=== PATIENT | female | born 1955 | race Hispanic/Latino ===

== ENCOUNTER 2018-09-22 05:54 | Day surgery (SDC) | payer OTHER ==
[2018-09-20 11:54] VITALS: BP 136/72
[2018-09-20 12:04] LABS: BASOPHILS % (AUTO) 0.9 % (0.0-5.0); EOSINOPHILS % (AUTO) 3.5 % (0.0-8.0); HEMATOCRIT 40.6 % (36-48); LYMPHOCYTES % (AUTO) 38.8 % (21.0-51.0); MEAN CORPUSCULAR HEMOGLOBIN 28.2 pg (27.0-33.0); MEAN CORPUSCULAR HGB CONC 32.6 g/dL (32.0-36.0); MEAN CORPUSCULAR VOLUME 86.6 fL (79-99); MONOCYTES % (AUTO) 8.1 % (3.0-13.0); NEUTROPHILS % (AUTO) 48.7 % (40.0-77.0); NUCLEATED RED BLOOD CELLS 0.1 % (0.0-0.19); PLATELET COUNT (AUTO) 171 K/uL (130-400); RED BLOOD CELL COUNT(AUTO) 4.69 MIL/uL (4.00-5.50); RED CELL DISTRIBUTION WIDTH 14.2 % (11.0-15.5); WHITE BLOOD COUNT (AUTO) 6.5 K/uL (4.8-10.8)
[2018-09-20 12:06] LABS: APPEARANCE,URINE Clear (CLEAR); BILIRUBIN,URINE Negative (NEGATIVE); COLOR,URINE Dark Yellow (YELLOW); GLUCOSE, URINE (UA) >=1000 mg/dL (NEGATIVE); KETONES,URINE Trace mg/dL (NEGATIVE); LEUKOCYTE ESTERASE ,URINE Negative (NEGATIVE); NITRATE,URINE Positive (NEGATIVE); OCCULT BLOOD,URINE Negative (NEGATIVE); PROTEIN,URINE Negative (NEGATIVE)
[2018-09-20 12:10] LABS: CREATININE 0.7 mg/dL (0.5-1.5)
[2018-09-20 12:18] LABS: BACTERIA,URINE Many /HPF (None Seen); RBC,URINE None Seen /HPF (0-1); WBC,URINE 0-1 /HPF (0-1)
[2018-09-20 12:22] LABS: INR 0.99 (0.85-1.15); PARTIAL THROMBOPLASTIN TIME 25.9 SEC (26.3-35.5); PROTHROMBIN TIME 10.4 SEC (9.6-11.6)
--- NOTE | 2018-09-21 11:24 | NUR ---
NOTE REPORTED ABNORMAL UA TO DAJUAN NAVARRO , NO FURTHER ORDERS GIVEN
[~2018-09-22] VITALS: Ht 160 cm; Wt 81.1 kg
[2018-09-22] VITALS (11 sets, daily range): BP systolic 125–159; BP diastolic 58–77
[~2018-09-22 05:54] MED LIST: ALEN35TA31 PO; ASPI-555 PO; ATOR20TA65 PO; CALC-1153 PO; CHOL200016 PO; CILO50TA PO; GABA-531 PO; LUTE6CAP2 PO; METF-446 PO; OMEP20CA10 PO; SITA100T12 PO; VITA1CAP20 PO; VITA400C19 PO
--- NOTE | 2018-09-22 06:48 | NUR ---
hyperglycemia reported elevated blood sugar 331 to Declan Nagy PAC, orders to use insulin Humulin R sliding scale
[2018-09-22] MEDS ORDERED: SODIUM BICARB 50MEQ 50ML VIAL ONE (07:08)
[2018-09-22] MEDS ORDERED: HEPARIN SODIUM 1000UNIT/ML 10ML VIAL ONE (07:08)
[2018-09-22] MEDS ORDERED: NITROGLYCERIN 5 MG/ML 10 ML VIAL IV ONE (07:09)
[2018-09-22] MEDS ORDERED: IODIXANOL 320 MG/ML 100 ML VIAL ONE (07:09)
[2018-09-22] MEDS ORDERED: LIDOCAINE HCL 2% 20ML ONE (07:09)
[2018-09-22] MEDS ORDERED: MEPERIDINE-PF 25 MG/ML SYG ONE ×2 (07:15→07:36)
[2018-09-22] MEDS ORDERED: MIDAZOLAM HCL 1 MG/ML 2ML VIAL ONE ×2 (07:15→07:36)
[2018-09-22] MEDS ORDERED: INSULIN HUMULIN R 100 UNIT/ML 3ML SQ SCH ×2 (07:30→11:30)
[2018-09-22] MEDS ORDERED: SODIUM CHLORIDE 0.9% 1000ML 1,000 ML IV SCH ×2 (08:00→08:50)
[2018-09-22] MEDS ORDERED: CLOPIDOGREL BISULFATE 300 MG TAB ONE (08:43)
[2018-09-22] MEDS ORDERED: DEXTROSE 50%-WATER 50 ML DISP.SYRIN IV PRN (09:00)
[2018-09-22] MEDS ORDERED: GLUCAGON 1MG KIT 1 MG ML IM PRN (09:00)
[2018-09-22] MEDS ORDERED: ACETAMINOPHEN 325 MG TAB PO SCH (09:45)
== END 2018-09-22 13:43 | disposition home or self-care (01) ==
LOC: DAH 05:54
PROVIDERS: ATTEND Internal Medicine Cardiovascular Disease
DX: I70.212 Atherosclerosis of native arteries of extremities with intermittent claudication, left leg (principal); I70.0 Atherosclerosis of aorta; E11.51 Type 2 diabetes mellitus with diabetic peripheral angiopathy without gangrene; Z95.5 Presence of coronary angioplasty implant and graft; I10 Essential (primary) hypertension; Z82.49 Family history of ischemic heart disease and other diseases of the circulatory system; E78.5 Hyperlipidemia, unspecified; Z79.01 Long term (current) use of anticoagulants; Z79.84 Long term (current) use of oral hypoglycemic drugs; Z79.899 Other long term (current) drug therapy; Z98.890 Other specified postprocedural states; Z68.30 Body mass index [BMI] 30.0-30.9, adult
CPT/HCPCS: 36415; 37226; 71045; 75625; 75716; 80048; 81001; 82948 ×3; 85025; 85347; 85610; 85730; 93005; A4606; C1725; C1760; C1769; C1874 ×2; C1893; C1894; J1644 ×2; J1815; J2175 ×2; J2250 ×2; J3490 ×3; Q9967; 99156; 99157

== ENCOUNTER 2019-04-22 04:49 | Inpatient (IN) | payer OTHER ==
[~2019-04-22] VITALS: Ht 162.6 cm; Wt 80.7 kg
[~2019-04-22 04:49] MED LIST changes: -OMEP20CA10 PO
[2019-04-22] MEDS ORDERED: SODIUM CHLORIDE 0.9% 500ML 500 ML IV ONE (05:38)
[2019-04-22] MEDS ORDERED: LIDOCAINE 5% TOPICAL PATCH TP ONE (05:40)
[2019-04-22 05:43] LABS: BASOPHILS % (AUTO) 0.7 % (0.0-5.0); LYMPHOCYTES % (AUTO) 32.5 % (21.0-51.0); MEAN CORPUSCULAR HEMOGLOBIN 30.9 pg (27.0-33.0); MEAN CORPUSCULAR HGB CONC 34.4 g/dL (32.0-36.0); MEAN CORPUSCULAR VOLUME 89.7 fL (79-99); MONOCYTES % (AUTO) 8.5 % (3.0-13.0); NEUTROPHILS % (AUTO) 54.3 % (40.0-77.0); PLATELET COUNT (AUTO) 136 K/uL (130-400); RED BLOOD CELL COUNT(AUTO) 4.13 MIL/uL (4.00-5.50); RED CELL DISTRIBUTION WIDTH 14.4 % (11.0-15.5); WHITE BLOOD COUNT (AUTO) 6.5 K/uL (4.8-10.8)
[2019-04-22 05:52] LABS: CREATININE 0.7 mg/dL (0.5-1.5); POTASSIUM 4.3 mmol/L (3.5-5.1)
[2019-04-22 05:56] LABS: ALBUMIN 3.6 g/dL (3.5-5.0); BILIRUBIN,TOTAL 0.3 mg/dL (0.2-1.0); MAGNESIUM 1.4 mg/dL (1.80-2.40); TOTAL PROTEIN, SERUM 7.2 g/dL (6.0-8.3)
[2019-04-22 06:09] LABS: INR 1.02 (0.85-1.15); PARTIAL THROMBOPLASTIN TIME 24.8 SEC (26.3-35.5); PROTHROMBIN TIME 10.7 SEC (9.6-11.6)
[2019-04-22 10:06] LABS: APPEARANCE,URINE Clear (CLEAR); BILIRUBIN,URINE Negative (NEGATIVE); COLOR,URINE Yellow (YELLOW); GLUCOSE, URINE (UA) >=1000 mg/dL (NEGATIVE); KETONES,URINE Negative (NEGATIVE); LEUKOCYTE ESTERASE ,URINE Negative (NEGATIVE); NITRATE,URINE Negative (NEGATIVE); OCCULT BLOOD,URINE Negative (NEGATIVE); PROTEIN,URINE Negative (NEGATIVE)
[2019-04-22 10:16] LABS: BACTERIA,URINE Many /HPF (None Seen); RBC,URINE None Seen /HPF (0-1)
[2019-04-22 10:17] LABS: WBC,URINE 0-1 /HPF (0-1)
[2019-04-22] MEDS ORDERED: ACETAMINOPHEN 325 MG TAB PO PRN (10:45)
[2019-04-22] MEDS ORDERED: ONDANSETRON HCL 4 MG/2 ML VIAL IV PRN (10:45)
[2019-04-22] MEDS ORDERED: NITROGLYCERIN 0.4 MG SL TAB SL PRN (10:45)
[2019-04-22] MEDS ORDERED: HYDRALAZINE HCL 20 MG/ML VIAL IV PRN (11:15)
[2019-04-22] MEDS ORDERED: MORPHINE SULFATE 2 MG/ML 1ML SYG IVP PRN (11:15)
[2019-04-22] MEDS ORDERED: NITROGLYCERIN 1GM/1 INCH PACKET TD ONE (14:52)
[2019-04-22 17:35] VITALS: BP 159/87
[2019-04-22] MEDS ORDERED: PANT40TA25 PO (18:18)
[2019-04-22] MEDS ORDERED: MELO-106 PO (18:18)
[2019-04-22] MEDS ORDERED: CARV6.25 PO (18:18)
[2019-04-22] MEDS ORDERED: CLOP75TA32 PO (18:18)
[2019-04-22] MEDS ORDERED: DULA1.5P SQ (18:21)
[2019-04-22] MEDS ORDERED: HUM100IN SQ (18:21)
--- NOTE | 2019-04-22 20:15 | NUR ---
ASSESSMENT PT AAOX4, PLEASANT, COOPERATIVE, FOLLOWS ALL COMMANDS, PERRLA. IV TO RAC 20G PATENT AND INTACT, NS AT 100ML/H STARTED. ROOM AIR. PT VOIDS WITHOUT DIFFICULTY. CALLBELL REVIEWED AND WITHIN REACH. WHITE BOARD UP-DATED. ASSESSMENT COMPLETED, SEE FLOW SHEET.
[2019-04-22] MEDS: NITROGLYCERIN 1GM/1 INCH PACKET TD SCH (20:43)
[2019-04-22] MEDS: HYDROCODONE/ACETAMINOPHEN 5/325 MG TAB PO PRN (20:44)
[2019-04-22] MEDS: FAMOTIDINE 20MG TAB 20 MG TAB PO SCH (20:44)
[2019-04-22] MEDS: SODIUM CHLORIDE 0.9% 1000ML 1,000 ML IV SCH (20:45)
[2019-04-22] MEDS: INSULIN HUMULIN R 100 UNIT/ML 3ML SQ SCH (22:29)
--- NOTE | 2019-04-22 23:59 | NUR ---
NPO PT NPO.
[2019-04-23] VITALS (13 sets, daily range): BP systolic 99–206; BP diastolic 42–88
[2019-04-23] MEDS: NITROGLYCERIN 1GM/1 INCH PACKET TD SCH ×3 (03:37→15:00)
[2019-04-23 05:41] LABS: HEMATOCRIT 37.2 % (36-48); MEAN CORPUSCULAR HEMOGLOBIN 30.9 pg (27.0-33.0); MEAN CORPUSCULAR VOLUME 90.7 fL (79-99); NUCLEATED RED BLOOD CELLS 0.1 % (0.0-0.19); PLATELET COUNT (AUTO) 134 K/uL (130-400); RED CELL DISTRIBUTION WIDTH 14.1 % (11.0-15.5); WHITE BLOOD COUNT (AUTO) 6.4 K/uL (4.8-10.8)
[2019-04-23 06:00] LABS: INR 1.01 (0.85-1.15); PARTIAL THROMBOPLASTIN TIME 24.8 SEC (26.3-35.5); PROTHROMBIN TIME 10.6 SEC (9.6-11.6)
[2019-04-23 06:11] LABS: CREATININE 0.6 mg/dL (0.5-1.5)
[2019-04-23] MEDS: INSULIN HUMULIN R 100 UNIT/ML 3ML SQ SCH ×4 (06:49→21:00)
[2019-04-23] MEDS: SODIUM CHLORIDE 0.9% 1000ML 1,000 ML IV SCH ×2 (07:02→11:12)
--- NOTE | 2019-04-23 07:45 | NUR ---
DR. INGRAM AT BEDSIDE TO SEE PT. PLAN OF CARE DISCUSSED. NEW ORDERS RECEIVED AND NOTED.
[2019-04-23] MEDS: ENOXAPARIN SODIUM 40 MG/0.4 ML SYRINGE SQ SCH (08:03)
[2019-04-23] MEDS ORDERED: ASPIRIN 81MG TAB.CHEW ONE (08:06)
[2019-04-23] MEDS: FAMOTIDINE 20MG TAB 20 MG TAB PO SCH ×2 (08:08→21:30)
[2019-04-23] MEDS: ASPIRIN 81 MG EC TAB PO SCH (09:00)
[2019-04-23] MEDS: CLOPIDOGREL BISULFATE 75 MG TAB PO SCH (09:59)
--- NOTE | 2019-04-23 11:00 | NUR ---
PT TAKEN TO HATCHERY SUPERVISOR BY HATCHERY SUPERVISOR NURSE.
[2019-04-23] MEDS ORDERED: NITROGLYCERIN 5 MG/ML 10 ML VIAL IV ONE ×2 (11:04→12:44)
[2019-04-23] MEDS ORDERED: HEPARIN SODIUM 1000UNIT/ML 10ML VIAL ONE ×2 (11:04→12:44)
[2019-04-23] MEDS ORDERED: LIDOCAINE HCL 2% 20ML ONE ×2 (11:05→12:44)
[2019-04-23] MEDS ORDERED: IODIXANOL 320 MG/ML 100 ML VIAL ONE ×2 (11:05→12:44)
--- NOTE | 2019-04-23 11:22 | NUR ---
NADER PLAN PATIENT DOWN FOR PROCEDURE. ROLANDO WILL CONTINUE TO FOLLOW. Addendum: 04/23/19 at 1125 by LETI ALLEN RN CM Amended: Links added.
[2019-04-23] MEDS ORDERED: LABETALOL HCL 5 MG/ML 20ML VIAL IV ONE (14:04)
[2019-04-23] MEDS ORDERED: SODIUM CHLORIDE 0.9% 1000ML 1,000 ML IV SCH (14:16)
[2019-04-23 15:47] LABS: CREATINE KINASE, TOTAL 49 U/L (21-232); MYOGLOBIN 34 ng/mL (10-92); TROPONIN I < 0.04 ng/mL (0.00-0.06)
--- NOTE | 2019-04-23 20:00 | NUR ---
PT STATES THAT SHE WAS TOLD THAT DR. HAGAN WOULD BE SEEING HER TONIGHT AND PROBABLY HAVE "SOME" SURGERY IN THE MORNING. PT WAS ADVISED THAT DR. HAGAN HAD BEEN BY IN THE MORNING AND NOT SURE THAT HE WOULD BE BACK, SHE STATED THAT SHE WOULD WAIT AND SEE.
[2019-04-23] MEDS: ATORVASTATIN CALCIUM 20 MG TABLET PO SCH (21:30)
[2019-04-23] MEDS: CARVEDILOL 6.25 MG TABLET PO SCH (21:30)
[2019-04-23] MEDS: HYDROCODONE/ACETAMINOPHEN 5/325 MG TAB PO PRN (21:32)
[2019-04-24] VITALS (7 sets, daily range): BP systolic 134–155; BP diastolic 61–84
[2019-04-24] MEDS: NITROGLYCERIN 1GM/1 INCH PACKET TD SCH ×3 (03:15→20:12)
[2019-04-24 04:06] LABS: HEMATOCRIT 36.2 % (36-48); MEAN CORPUSCULAR HEMOGLOBIN 30.8 pg (27.0-33.0); MEAN CORPUSCULAR HGB CONC 34.2 g/dL (32.0-36.0); MEAN CORPUSCULAR VOLUME 89.8 fL (79-99); PLATELET COUNT (AUTO) 135 K/uL (130-400); RED BLOOD CELL COUNT(AUTO) 4.03 MIL/uL (4.00-5.50); RED CELL DISTRIBUTION WIDTH 14.1 % (11.0-15.5); WHITE BLOOD COUNT (AUTO) 6.6 K/uL (4.8-10.8)
[2019-04-24 04:21] LABS: CREATININE 0.6 mg/dL (0.5-1.5)
[2019-04-24] MEDS: INSULIN HUMULIN R 100 UNIT/ML 3ML SQ SCH ×4 (07:30→21:00)
[2019-04-24] MEDS: ASPIRIN 81 MG EC TAB PO SCH (09:00)
[2019-04-24] MEDS: ENOXAPARIN SODIUM 40 MG/0.4 ML SYRINGE SQ SCH (09:00)
[2019-04-24] MEDS: CLOPIDOGREL BISULFATE 75 MG TAB PO SCH (09:00)
--- NOTE | 2019-04-24 09:02 | NUR ---
HELD DOSE OF PLAVIX, ASA, AND LOVENOX, SCHEDULED FOR FEM POP TODAY
[2019-04-24] MEDS: FAMOTIDINE 20MG TAB 20 MG TAB PO SCH ×2 (09:03→20:38)
[2019-04-24] MEDS: CARVEDILOL 6.25 MG TABLET PO SCH ×2 (09:04→20:39)
[2019-04-24] MEDS: SODIUM CHLORIDE 0.9% 1000ML 1,000 ML IV SCH ×3 (09:41→18:30)
[2019-04-24 10:14] LABS: INR 1.02 (0.85-1.15); PROTHROMBIN TIME 10.7 SEC (9.6-11.6)
--- NOTE | 2019-04-24 11:35 | NUR ---
[facility] consult Patient assessed as ordered. No open wound identified. Right forearm site where wound was is now epithelialized. No [facility] recommendations required at this time.
[2019-04-24] MEDS ORDERED: CEFAZOLIN SODIUM 1 GM VIAL IVP PRN (15:00)
--- NOTE | 2019-04-24 16:48 | NUR ---
DC PLAN VISITED WITH PATIENT. PATIENT LIVES WITH SPOUSE. INDEPENDENT ABLE TO PERFORM ADL'S. PATIENT HAS NO SERVICES OR DME'S. FEELS SAFE TO RETURN HOME. Addendum: 04/24/19 at 1651 by LETI ALLEN RN CM Amended: Links added.
--- NOTE | 2019-04-24 19:35 | NUR ---
ASSESSMENT AWAKE. RESTING IN BED. DENIES PAIN. ASSESSMENT COMPLETED SEE FLOW SHEET. Addendum: 04/24/19 at 2231 by MANOJ ADAMSON RN RN Amended: Links added.
[2019-04-24] MEDS: ATORVASTATIN CALCIUM 20 MG TABLET PO SCH (20:38)
[2019-04-24] MEDS: HYDROCODONE/ACETAMINOPHEN 5/325 MG TAB PO PRN (20:44)
[2019-04-25] VITALS (17 sets, daily range): BP systolic 95–181; BP diastolic 47–81
[2019-04-25] MEDS: SODIUM CHLORIDE 0.9% 1000ML 1,000 ML IV SCH ×2 (03:15→11:45)
[2019-04-25] MEDS: NITROGLYCERIN 1GM/1 INCH PACKET TD SCH ×3 (03:15→20:17)
[2019-04-25] MEDS: INSULIN HUMULIN R 100 UNIT/ML 3ML SQ SCH ×4 (03:39→22:10)
[2019-04-25] MEDS: ASPIRIN 81 MG EC TAB PO SCH (08:49)
[2019-04-25] MEDS: FAMOTIDINE 20MG TAB 20 MG TAB PO SCH ×2 (08:49→22:08)
[2019-04-25] MEDS: CARVEDILOL 6.25 MG TABLET PO SCH ×2 (08:49→22:08)
[2019-04-25] MEDS: CLOPIDOGREL BISULFATE 75 MG TAB PO SCH (08:50)
[2019-04-25] MEDS: ENOXAPARIN SODIUM 40 MG/0.4 ML SYRINGE SQ SCH (08:50)
--- NOTE | 2019-04-25 11:30 | NUR ---
patient taken to OR by OR staff; daughter at bedside
[2019-04-25] MEDS ORDERED: DEXAMETHASONE SOD PHOSPHATE 10MG/ML 1ML VIAL ONE (12:00)
[2019-04-25] MEDS ORDERED: ONDANSETRON HCL 4 MG/2 ML VIAL ONE (12:00)
[2019-04-25] MEDS ORDERED: LIDOCAINE PF 2% 5ML ABBOJECT ONE (12:00)
[2019-04-25] MEDS ORDERED: FENTANYL CITRATE PF 50 MCG/1 ML 2ML VIAL ONE ×2 (12:00→14:02)
[2019-04-25] MEDS ORDERED: MIDAZOLAM HCL 1 MG/ML 2ML VIAL ONE (12:01)
[2019-04-25] MEDS ORDERED: PROPOFOL 10 MG/ML 20ML VIAL IV ONE (12:01)
[2019-04-25] MEDS ORDERED: BACITRACIN 50,000 UNIT VIAL ONE (12:51)
[2019-04-25] MEDS ORDERED: MORPHINE SULFATE 2 MG/ML 1ML SYG IM PRN (13:30)
[2019-04-25] MEDS ORDERED: HEPARIN SODIUM 1000UNIT/ML 10ML VIAL ONE (13:40)
[2019-04-25] MEDS ORDERED: ACETAMINOPHEN 325 MG TAB PO PRN (13:45)
[2019-04-25] MEDS ORDERED: NEOSTIGMINE 5MG/5ML SYR IV ONE (14:31)
[2019-04-25] MEDS ORDERED: GLYCOPYRROLATE 1 MG/5 ML SYRINGE ONE (14:31)
--- NOTE | 2019-04-25 15:16 | NUR ---
RECEIVED FROM SURGERY DEPT . DROWSY. PATENT AIRWAY. STABLE. NO BLEEDING PEDAL PULSES TO LEFT FOOT WEAK/PALPABLE. DRESSING TO INNER RT THIGH CLEAN DRY AND INTACT
[2019-04-25 15:23] LABS: MEAN CORPUSCULAR HEMOGLOBIN 30.9 pg (27.0-33.0); MEAN CORPUSCULAR HGB CONC 33.6 g/dL (32.0-36.0); MEAN CORPUSCULAR VOLUME 91.9 fL (79-99); RED BLOOD CELL COUNT(AUTO) 3.92 MIL/uL (4.00-5.50)
[2019-04-25 15:24] LABS: PLATELET COUNT (AUTO) 130 K/uL (130-400); RED CELL DISTRIBUTION WIDTH 14.1 % (11.0-15.5)
[2019-04-25 15:29] LABS: CREATININE 0.6 mg/dL (0.5-1.5); POTASSIUM 3.7 mmol/L (3.5-5.1)
[2019-04-25] MEDS ORDERED: MORPHINE SULFATE 2 MG/ML 1ML SYG IV PRN ×2 (16:00→16:30)
[2019-04-25] MEDS ORDERED: MORPHINE SULFATE 2 MG/ML 1ML SYG ONE (16:03)
[2019-04-25] MEDS: TRAMADOL HCL 50 MG TABLET PO PRN (17:20)
--- NOTE | 2019-04-25 19:19 | NUR ---
HAND OFF REPORT GIVEN TO LAXMI BEVERLY
[2019-04-25] MEDS: CEFAZOLIN SODIUM 1 GM VIAL IVP SCH (22:07)
[2019-04-25] MEDS: ATORVASTATIN CALCIUM 20 MG TABLET PO SCH (22:07)
[2019-04-26] VITALS (14 sets, daily range): BP systolic 95–149; BP diastolic 46–82
[2019-04-26] MEDS: SODIUM CHLORIDE 0.9% 1000ML 1,000 ML IV SCH ×2 (00:30→08:50)
[2019-04-26] MEDS: TRAMADOL HCL 50 MG TABLET PO PRN ×4 (00:57→23:23)
[2019-04-26 03:51] LABS: BASOPHILS % (AUTO) 0.2 % (0.0-5.0); HEMATOCRIT 30.9 % (36-48); MEAN CORPUSCULAR HEMOGLOBIN 31.3 pg (27.0-33.0); MEAN CORPUSCULAR HGB CONC 35.1 g/dL (32.0-36.0); MEAN CORPUSCULAR VOLUME 89.1 fL (79-99); MONOCYTES % (AUTO) 6.2 % (3.0-13.0); NEUTROPHILS % (AUTO) 86.6 % (40.0-77.0); PLATELET COUNT (AUTO) 150 K/uL (130-400); RED BLOOD CELL COUNT(AUTO) 3.46 MIL/uL (4.00-5.50); WHITE BLOOD COUNT (AUTO) 8.4 K/uL (4.8-10.8)
[2019-04-26] MEDS: NITROGLYCERIN 1GM/1 INCH PACKET TD SCH ×2 (03:54→11:15)
[2019-04-26 04:02] LABS: ALBUMIN 3.1 g/dL (3.5-5.0); BILIRUBIN,TOTAL 0.6 mg/dL (0.2-1.0); CREATININE 0.7 mg/dL (0.5-1.5); TOTAL PROTEIN, SERUM 6.4 g/dL (6.0-8.3)
[2019-04-26] MEDS: CEFAZOLIN SODIUM 1 GM VIAL IVP SCH ×2 (05:27→12:06)
[2019-04-26] MEDS: INSULIN HUMULIN R 100 UNIT/ML 3ML SQ SCH ×4 (06:51→21:20)
--- NOTE | 2019-04-26 07:30 | NUR ---
PT OUT OF BED TO CHAIR. ENCOURAGED TO INCREASE ACTIVITY. PULSES TO LEFT FOOT PRESENT BY DOPPLER. DRESSINGS CLEAN DRY AND INTACT.
[2019-04-26] MEDS: CLOPIDOGREL BISULFATE 75 MG TAB PO SCH (08:47)
[2019-04-26] MEDS: FAMOTIDINE 20MG TAB 20 MG TAB PO SCH ×2 (08:47→21:11)
[2019-04-26] MEDS: CARVEDILOL 6.25 MG TABLET PO SCH ×2 (08:47→21:11)
[2019-04-26] MEDS: ENOXAPARIN SODIUM 40 MG/0.4 ML SYRINGE SQ SCH (08:48)
[2019-04-26] MEDS ORDERED: ASPIRIN 325MG EC TAB 325 MG TABLET.DR PO SCH (09:00)
--- NOTE | 2019-04-26 17:57 | NUR ---
TRANSFERRED TO ROOM 231. HAND OFF REPORT GIVEN TO DIMAS BEVERLY
[2019-04-26] MEDS: ATORVASTATIN CALCIUM 20 MG TABLET PO SCH (21:11)
[2019-04-27 04:27] VITALS: BP 127/62
[2019-04-27 04:34] LABS: BASOPHILS % (AUTO) 0.4 % (0.0-5.0); EOSINOPHILS % (AUTO) 1.1 % (0.0-8.0); HEMATOCRIT 26.9 % (36-48); LYMPHOCYTES % (AUTO) 26.3 % (21.0-51.0); MEAN CORPUSCULAR HEMOGLOBIN 31.8 pg (27.0-33.0); MEAN CORPUSCULAR HGB CONC 35.1 g/dL (32.0-36.0); MEAN CORPUSCULAR VOLUME 90.6 fL (79-99); MONOCYTES % (AUTO) 8.9 % (3.0-13.0); NEUTROPHILS % (AUTO) 63.3 % (40.0-77.0); PLATELET COUNT (AUTO) 117 K/uL (130-400); RED BLOOD CELL COUNT(AUTO) 2.97 MIL/uL (4.00-5.50); RED CELL DISTRIBUTION WIDTH 14.5 % (11.0-15.5); WHITE BLOOD COUNT (AUTO) 6.7 K/uL (4.8-10.8)
[2019-04-27 04:53] LABS: CREATININE 0.6 mg/dL (0.5-1.5); POTASSIUM 3.4 mmol/L (3.5-5.1)
[2019-04-27] MEDS: INSULIN HUMULIN R 100 UNIT/ML 3ML SQ SCH ×3 (06:48→17:20)
[2019-04-27] MEDS: TRAMADOL HCL 50 MG TABLET PO PRN ×2 (07:00→13:46)
[2019-04-27 07:47] VITALS: BP 125/74
[2019-04-27] MEDS ORDERED: FUROSEMIDE 20 MG TABLET PO SCH (09:30)
[2019-04-27] MEDS: CARVEDILOL 6.25 MG TABLET PO SCH (09:47)
[2019-04-27] MEDS: FAMOTIDINE 20MG TAB 20 MG TAB PO SCH (09:47)
[2019-04-27] MEDS: NITROGLYCERIN 1GM/1 INCH PACKET TD SCH (11:15)
[2019-04-27 11:48] VITALS: BP 102/59
--- NOTE | 2019-04-27 15:22 | NUR ---
Nutrition intervention: Nutrition screen for LOS. Pt admitted for elevated trop. Pt is s/p left fem-pop sx. Pt with diet advanced to [id number], heart healthy, NCS with 100% intake. Pt with PMH of uncontrolled DM. Reviewed heart healthy diet with pt, encouraged to make dietary lifestyle changes for the better of her health. Pt verbalized agreement. Recommendations: Continue current diet therapy. Monitor intake and tolerance. Consult RD as nutrition concerns arise. Addendum: 04/27/19 at [address] RD Amended: Links added.
[2019-04-27 15:35] VITALS: BP 123/64
[2019-04-28] MEDS ORDERED: ASPIRIN 81MG TAB.CHEW PO SCH (09:00)
== END 2019-04-27 18:50 | disposition home or self-care (01) | DRG 253 ==
LOC: EDH 04:49 → EDHIP 10:44 → 2DH 17:40 → 2BH 04-25 12:47 → 2AH 04-26 18:48
PROVIDERS: ADMIT Hospitalist; ATTEND Hospitalist
PROC: B4101ZZ Fluoroscopy of Abdominal Aorta using Low Osmolar Contrast (ICD-10-PCS; 2019-04-25)
PROC: B41G1ZZ Fluoroscopy of Left Lower Extremity Arteries using Low Osmolar Contrast (ICD-10-PCS; 2019-04-25)
PROC: B41F1ZZ Fluoroscopy of Right Lower Extremity Arteries using Low Osmolar Contrast (ICD-10-PCS; 2019-04-25)
PROC: 041L0JL Bypass Left Femoral Artery to Popliteal Artery with Synthetic Substitute, Open Approach (ICD-10-PCS; principal; 2019-04-25 12:05)
DX: T82.856A Stenosis of peripheral vascular stent, initial encounter (principal); D62 Acute posthemorrhagic anemia; E11.51 Type 2 diabetes mellitus with diabetic peripheral angiopathy without gangrene; I25.10 Atherosclerotic heart disease of native coronary artery without angina pectoris; E11.65 Type 2 diabetes mellitus with hyperglycemia; I70.202 Unspecified atherosclerosis of native arteries of extremities, left leg; E11.40 Type 2 diabetes mellitus with diabetic neuropathy, unspecified; M94.0 Chondrocostal junction syndrome [Tietze]; E03.9 Hypothyroidism, unspecified; E66.9 Obesity, unspecified; E78.5 Hyperlipidemia, unspecified; I10 Essential (primary) hypertension; Y83.8 Other surgical procedures as the cause of abnormal reaction of the patient, or of later complication, without mention of misadventure at the time of the procedure; Z80.9 Family history of malignant neoplasm, unspecified; Z68.30 Body mass index [BMI] 30.0-30.9, adult; Z95.5 Presence of coronary angioplasty implant and graft; Z95.820 Peripheral vascular angioplasty status with implants and grafts; Y92.89 Other specified places as the place of occurrence of the external cause
CPT/HCPCS: 36246; 36415; 75710; 75716; 80048; 80053; 80061; 81001; 82550; 82948; 83036; 83605; 83735; 83874; 84484; 85025; 85027; 85610; 85730; 86850; 86900; 86901; 86922; 93005; 93926; 93971; 97039; C1760; C1768; C1769; C1894; G0378; J0360; J0690; J1100; J1644; J1650; J1815; J2001; J2250; J2405; J2704; J2710; J3010; J3490; J7030; J7040; Q9967

== ENCOUNTER → 2021-01-08 | Outpatient (CLI) | payer OTHER ==
[~2021-01-08] MED LIST changes: -ALEN35TA31 PO; +ALEN35TA51 PO; -ASPI-555 PO; +ASPI-556 PO; -CALC-1153 PO; +CARV6.25 PO; -CHOL200016 PO; -CILO50TA PO; +DULA1.5P SQ; +HUM100IN SQ; +IOHEXOL 350 MG/ML 100ML INFUS..BTL IV ONE; +IOHEXOL-350 50ML VIAL IV ONE; +MELO-106 PO; +PANT40TA54 PO; +VITA-395 PO; -VITA400C19 PO
== END | disposition home or self-care (01) ==
LOC: RAH 08:32
PROVIDERS: ATTEND Internal Medicine Cardiovascular Disease
DX: I71.4 Abdominal aortic aneurysm, without rupture (principal); I70.0 Atherosclerosis of aorta
CPT/HCPCS: 75635; Q9967 ×2

== ENCOUNTER 2021-02-24 15:02 | Inpatient (IN) | payer OTHER ==
[~2021-02-24] VITALS: Ht 157.5 cm; Wt 88.2 kg
[~2021-02-24 15:02] MED LIST changes: -IOHEXOL 350 MG/ML 100ML INFUS..BTL IV ONE; -IOHEXOL-350 50ML VIAL IV ONE
[2021-02-24 15:07] VITALS: BP 135/58
[2021-02-24] MEDS ORDERED: HYDROCODONE/ACETAMINOPHEN 10/325 MG TAB PO ONE (15:30)
[2021-02-24 15:42] LABS: BASOPHILS % (AUTO) 0.5 % (0.0-5.0); EOSINOPHILS % (AUTO) 2.1 % (0.0-8.0); HEMATOCRIT 43.2 % (36-48); LYMPHOCYTES % (AUTO) 26.1 % (21.0-51.0); MEAN CORPUSCULAR HGB CONC 32.4 g/dL (32.0-36.0); MEAN CORPUSCULAR VOLUME 92.7 fL (79-99); MONOCYTES % (AUTO) 9.3 % (3.0-13.0); NEUTROPHILS % (AUTO) 61.7 % (40.0-77.0); PLATELET COUNT (AUTO) 153 K/uL (130-400); RED BLOOD CELL COUNT(AUTO) 4.66 MIL/uL (4.00-5.50); WHITE BLOOD COUNT (AUTO) 6.1 K/uL (4.8-10.8)
[2021-02-24 15:52] LABS: POTASSIUM 4.3 mmol/L (3.5-5.1)
[2021-02-24 16:12] LABS: ALBUMIN 3.5 g/dL (3.5-5.0); BILIRUBIN,TOTAL 0.4 mg/dL (0.2-1.0); CRP QUANTITATIVE 4.1 mg/L (0.00-9.0); TOTAL PROTEIN, SERUM 7.4 g/dL (6.0-8.3)
[2021-02-24] MEDS ORDERED: INSULIN HUMULIN R 100 UNIT/ML 3ML IV STA (17:16)
[2021-02-24] MEDS ORDERED: NACL 0.9% 1000ML 1,000 ML IV ONE (17:30)
[2021-02-24] MEDS ORDERED: HEPARIN 25,000 UNITS/250ML D5W 250 ML IV SCH ×2 (18:00→22:00)
[2021-02-24] MEDS ORDERED: HEPARIN 5,000 UNIT VIAL ONE (18:23)
[2021-02-24 18:41] LABS: INR 1.05 (0.85-1.15); PROTHROMBIN TIME 11.4 SEC (9.6-11.6)
[2021-02-24 18:42] LABS: PARTIAL THROMBOPLASTIN TIME 23.4 SEC (26.3-35.5)
[2021-02-24] MEDS ORDERED: INSULIN HUMULIN R 100 UNIT/ML 3ML ONE (18:46)
[2021-02-24] MEDS ORDERED: HEPARIN 10,000 UNIT/10ML (1,000 UNIT/ML) VIAL ONE (19:00)
[2021-02-24] MEDS ORDERED: NITROGLYCERIN 2 MG VIAL IV ONE (19:00)
[2021-02-24] MEDS ORDERED: FENTANYL CITRATE PF 50 MCG/1 ML 2ML VIAL ONE (19:01)
[2021-02-24] MEDS ORDERED: IODIXANOL 320 MG/ML 100 ML VIAL ONE (19:01)
[2021-02-24] MEDS ORDERED: MIDAZOLAM HCL 1 MG/ML 2ML VIAL ONE (19:01)
[2021-02-24] MEDS ORDERED: LIDOCAINE HCL 400MG/20ML VIAL ONE (19:02)
[2021-02-24] MEDS ORDERED: HEPARIN 5,000 UNIT VIAL IV ONE (19:15)
[2021-02-24] MEDS ORDERED: HEPARIN 25,000 UNITS/250ML D5W 250 ML IV ONE (20:31)
[2021-02-24] MEDS ORDERED: PHARMACY COMMUNICATION MISC SCH ×2 (21:00)
[2021-02-24] MEDS ORDERED: NACL 0.9% 1000ML 1,000 ML IV SCH (21:00)
[2021-02-24] MEDS ORDERED: ACETAMINOPHEN 325 MG TAB PO PRN (21:15)
[2021-02-24] MEDS ORDERED: MORPHINE 2 MG SYG IV PRN (21:15)
[2021-02-24] MEDS ORDERED: MORPHINE 2 MG SYG IVP PRN (21:15)
[2021-02-24] MEDS ORDERED: MORPHINE 4 MG SYG IV PRN (21:15)
[2021-02-24] MEDS ORDERED: ONDANSETRON 4MG INJ IV PRN (21:15)
[2021-02-24] MEDS ORDERED: GLUCAGON 1MG KIT 1 MG ML IM PRN (21:30)
[2021-02-24] MEDS ORDERED: DEXTROSE 50%-WATER 50 ML DISP.SYRIN IV PRN (21:30)
[2021-02-24 21:54] LABS: HEMOGLOBIN A1C 10.4 % (4.0-6.0)
[2021-02-24 21:58] VITALS: BP 142/86
[2021-02-24 22:02] VITALS: BP 131/62
[2021-02-24 22:30] VITALS: BP 123/68
[2021-02-24 23:00] VITALS: BP 154/102
[2021-02-24] MEDS: ALTEPLASE IVCATH ONE (23:28)
[2021-02-24] MEDS: [UNRECOGNIZED DRUG - OTHER] IVCATH ONE (23:28)
[2021-02-24 23:30] VITALS: BP 138/72
[2021-02-25] VITALS (30 sets, daily range): BP systolic 74–170; BP diastolic 45–82
[2021-02-25] MEDS ORDERED: HYDROMORPHONE 1 MG INJ ONE (00:40)
[2021-02-25] MEDS ORDERED: HYDROMORPHONE 1 MG INJ IVP ONE (01:30)
[2021-02-25 04:12] LABS: HEMATOCRIT 44.6 % (36-48); MEAN CORPUSCULAR HEMOGLOBIN 29.9 pg (27.0-33.0); MEAN CORPUSCULAR HGB CONC 31.4 g/dL (32.0-36.0); MEAN CORPUSCULAR VOLUME 95.1 fL (79-99); RED BLOOD CELL COUNT(AUTO) 4.69 MIL/uL (4.00-5.50); RED CELL DISTRIBUTION WIDTH 14.2 % (11.0-15.5); WHITE BLOOD COUNT (AUTO) 7.6 K/uL (4.8-10.8)
[2021-02-25 04:27] LABS: CREATININE 0.6 mg/dL (0.5-1.5); POTASSIUM 4.5 mmol/L (3.5-5.1)
[2021-02-25] MEDS: [UNRECOGNIZED DRUG - OTHER] IVCATH ONE (05:21)
[2021-02-25] MEDS: ALTEPLASE IVCATH ONE (05:21)
[2021-02-25] MEDS: INSULIN HUMULIN R 100 UNIT/ML 3ML SQ SCH ×4 (05:26→21:00)
[2021-02-25] MEDS ORDERED: HEPARIN 10,000 UNIT/10ML (1,000 UNIT/ML) VIAL ONE ×3 (07:00→19:32)
[2021-02-25] MEDS ORDERED: MIDAZOLAM HCL 1 MG/ML 2ML VIAL ONE ×2 (07:01→17:26)
[2021-02-25] MEDS ORDERED: FENTANYL CITRATE PF 50 MCG/1 ML 2ML VIAL ONE ×2 (07:01→17:26)
[2021-02-25] MEDS ORDERED: IODIXANOL 320 MG/ML 100 ML VIAL ONE (07:01)
[2021-02-25] MEDS ORDERED: NITROGLYCERIN 2 MG VIAL IV ONE (07:02)
[2021-02-25] MEDS ORDERED: LIDOCAINE HCL 400MG/20ML VIAL ONE (07:02)
[2021-02-25] MEDS ORDERED: ASPIRIN 81 MG EC TAB PO SCH (09:00)
[2021-02-25] MEDS ORDERED: CLOPIDOGREL 75MG TAB PO SCH (09:00)
[2021-02-25] MEDS: HYDROMORPHONE 1 MG INJ IVP PRN ×2 (10:29→15:36)
[2021-02-25 10:30] LABS: INR 1.29 (0.85-1.15); PROTHROMBIN TIME 13.7 SEC (9.6-11.6)
[2021-02-25 10:31] LABS: PARTIAL THROMBOPLASTIN TIME 33.6 SEC (26.3-35.5)
[2021-02-25] MEDS ORDERED: HEPARIN 25,000 UNITS/250ML D5W 250 ML IV SCH (12:00)
[2021-02-25] MEDS ORDERED: MORPHINE 2 MG SYG IVP PRN ×2 (13:00)
[2021-02-25] MEDS ORDERED: LIDOCAINE PF 100MG/5ML (2%) SYRINGE 5ML ONE (17:26)
[2021-02-25] MEDS ORDERED: GLYCOPYRROLATE 1 MG/5 ML SYRINGE ONE (17:26)
[2021-02-25] MEDS ORDERED: SUCCINYLCHOLINE CHLORIDE 20 MG/ML 10 ML VIAL ONE (17:26)
[2021-02-25] MEDS ORDERED: PROPOFOL 10 MG/ML 20ML VIAL IV ONE (17:26)
[2021-02-25] MEDS ORDERED: ONDANSETRON 4MG INJ ONE (17:26)
[2021-02-25] MEDS ORDERED: NEOSTIGMINE 5MG/5ML SYR IV ONE (17:26)
[2021-02-25] MEDS ORDERED: DEXAMETHASONE SOD PHOSPHATE 10MG/ML 1ML VIAL ONE (17:26)
[2021-02-25] MEDS ORDERED: ROCURONIUM 10MG/1ML SYR 10 MG/ML ML ONE (17:27)
[2021-02-25] MEDS ORDERED: EPHEDRINE SULFATE 50 MG/ML AMPULE ONE (17:31)
[2021-02-25] MEDS ORDERED: ALBUMIN (HUMAN) 5% 500 ML IV ONE (18:32)
[2021-02-25] MEDS ORDERED: ANTITHROMBIN III 500 UNIT VIAL IV ONE (19:32)
[2021-02-25] MEDS ORDERED: CEFAZOLIN SODIUM 1 GM VIAL ONE ×2 (19:32→19:43)
[2021-02-25] MEDS ORDERED: PROTAMINE SULFATE 10 MG/ML 25ML VIAL IV ONE (19:32)
[2021-02-25] MEDS ORDERED: ESMOLOL HCL 10 MG/ML 10 ML VIAL ONE (19:33)
[2021-02-25] MEDS ORDERED: FENTANYL CITRATE PF 50 MCG/1 ML 5ML AMP IV ONE (19:39)
[2021-02-25] MEDS ORDERED: PHENYLEPHRINE HCL 10 MG/ML 1ML VIAL IV ONE (19:51)
[2021-02-26] VITALS (19 sets, daily range): BP systolic 104–167; BP diastolic 49–79
[2021-02-26 00:44] LABS: INR 1.12 (0.85-1.15); PROTHROMBIN TIME 12.1 SEC (9.6-11.6)
[2021-02-26] MEDS: KETOROLAC 30MG VIAL (30MG/ML) IV SCH ×4 (00:57→18:00)
[2021-02-26 03:50] LABS: BASOPHILS % (AUTO) 0.2 % (0.0-5.0); HEMATOCRIT 31.1 % (36-48); LYMPHOCYTES % (AUTO) 8.7 % (21.0-51.0); MEAN CORPUSCULAR HEMOGLOBIN 29.7 pg (27.0-33.0); MEAN CORPUSCULAR HGB CONC 30.9 g/dL (32.0-36.0); MEAN CORPUSCULAR VOLUME 96.3 fL (79-99); MONOCYTES % (AUTO) 3.8 % (3.0-13.0); NEUTROPHILS % (AUTO) 86.4 % (40.0-77.0); PLATELET COUNT (AUTO) 113 K/uL (130-400); RED BLOOD CELL COUNT(AUTO) 3.23 MIL/uL (4.00-5.50); RED CELL DISTRIBUTION WIDTH 14.7 % (11.0-15.5); WHITE BLOOD COUNT (AUTO) 8.2 K/uL (4.8-10.8)
[2021-02-26 04:01] LABS: INR 1.11 (0.85-1.15)
[2021-02-26 04:02] LABS: PARTIAL THROMBOPLASTIN TIME 24.2 SEC (26.3-35.5)
[2021-02-26 04:05] LABS: CREATININE 0.7 mg/dL (0.5-1.5); MAGNESIUM 2.1 mg/dL (1.80-2.40); PHOSPHORUS 3.1 mg/dL (2.5-4.9); POTASSIUM 4.7 mmol/L (3.5-5.1)
[2021-02-26] MEDS: CEFAZOLIN SODIUM 1 GM VIAL IVP SCH ×3 (04:27→19:29)
[2021-02-26 05:09] LABS: ALBUMIN 3.4 g/dL (3.5-5.0); BILIRUBIN,DIRECT 0.2 mg/dL (0.0-0.3); BILIRUBIN,TOTAL 0.5 mg/dL (0.2-1.0); TOTAL PROTEIN, SERUM 6.5 g/dL (6.0-8.3)
[2021-02-26] MEDS: INSULIN HUMULIN R 100 UNIT/ML 3ML SQ SCH ×4 (06:19→21:37)
[2021-02-26] MEDS: ASPIRIN 81 MG EC TAB PO SCH (09:52)
[2021-02-26] MEDS: CLOPIDOGREL 75MG TAB PO SCH (09:53)
[2021-02-26] MEDS: INSULIN GLARGINE 100 UNITS/ML 10 ML VIAL SQ SCH (10:17)
[2021-02-26] MEDS: TRAMADOL HCL 50 MG TABLET PO PRN ×2 (13:08→21:38)
[2021-02-27] MEDS: KETOROLAC 30MG VIAL (30MG/ML) IV SCH ×2 (00:08→06:17)
[2021-02-27 03:00] VITALS: BP 118/58
[2021-02-27] MEDS: INSULIN HUMULIN R 100 UNIT/ML 3ML SQ SCH ×4 (06:18→20:37)
[2021-02-27 08:10] VITALS: BP 106/57
[2021-02-27] MEDS: CLOPIDOGREL 75MG TAB PO SCH (08:15)
[2021-02-27] MEDS: ASPIRIN 81 MG EC TAB PO SCH (08:15)
[2021-02-27] MEDS: INSULIN GLARGINE 100 UNITS/ML 10 ML VIAL SQ SCH ×2 (08:16→20:38)
[2021-02-27] MEDS: TRAMADOL HCL 50 MG TABLET PO PRN (08:18)
[2021-02-27 10:15] LABS: BASOPHILS % (AUTO) 0.5 % (0.0-5.0); LYMPHOCYTES % (AUTO) 25.9 % (21.0-51.0); MEAN CORPUSCULAR HEMOGLOBIN 29.4 pg (27.0-33.0); MEAN CORPUSCULAR HGB CONC 30.7 g/dL (32.0-36.0); MEAN CORPUSCULAR VOLUME 95.7 fL (79-99); MONOCYTES % (AUTO) 10.1 % (3.0-13.0); NEUTROPHILS % (AUTO) 61.6 % (40.0-77.0); PLATELET COUNT (AUTO) 102 K/uL (130-400); RED BLOOD CELL COUNT(AUTO) 2.82 MIL/uL (4.00-5.50); RED CELL DISTRIBUTION WIDTH 15.2 % (11.0-15.5); WHITE BLOOD COUNT (AUTO) 5.9 K/uL (4.8-10.8)
[2021-02-27] MEDS ORDERED: LACTULOSE 20 GM/30 ML UDCUP PO PRN (10:45)
[2021-02-27 10:53] LABS: BILIRUBIN,TOTAL 0.5 mg/dL (0.2-1.0); CREATININE 0.6 mg/dL (0.5-1.5); POTASSIUM 3.7 mmol/L (3.5-5.1)
[2021-02-27 11:44] VITALS: BP 116/74
[2021-02-27 16:14] VITALS: BP 145/77
[2021-02-27 19:16] VITALS: BP 151/74
[2021-02-27] MEDS: DOCUSATE SODIUM 100 MG CAP PO SCH (20:35)
[2021-02-27] MEDS: ATORVASTATIN 40 MG TABLET PO SCH (20:36)
[2021-02-27 23:51] VITALS: BP 158/75
[2021-02-28 03:04] VITALS: BP 135/80
[2021-02-28 04:47] LABS: CREATININE 0.5 mg/dL (0.5-1.5); POTASSIUM 3.4 mmol/L (3.5-5.1)
[2021-02-28 04:48] LABS: BASOPHILS % (AUTO) 0.4 % (0.0-5.0); EOSINOPHILS % (AUTO) 1.7 % (0.0-8.0); HEMATOCRIT 25.1 % (36-48); LYMPHOCYTES % (AUTO) 30.4 % (21.0-51.0); MEAN CORPUSCULAR HGB CONC 31.9 g/dL (32.0-36.0); MONOCYTES % (AUTO) 10.6 % (3.0-13.0); NEUTROPHILS % (AUTO) 55.7 % (40.0-77.0); PLATELET COUNT (AUTO) 105 K/uL (130-400); RED BLOOD CELL COUNT(AUTO) 2.67 MIL/uL (4.00-5.50); RED CELL DISTRIBUTION WIDTH 14.9 % (11.0-15.5); WHITE BLOOD COUNT (AUTO) 5.2 K/uL (4.8-10.8)
[2021-02-28] MEDS: INSULIN HUMULIN R 100 UNIT/ML 3ML SQ SCH ×4 (06:55→21:54)
[2021-02-28 08:27] VITALS: BP 160/91
[2021-02-28] MEDS: CLOPIDOGREL 75MG TAB PO SCH (08:58)
[2021-02-28] MEDS: ASPIRIN 81 MG EC TAB PO SCH (08:58)
[2021-02-28] MEDS: DOCUSATE SODIUM 100 MG CAP PO SCH ×2 (08:58→20:19)
[2021-02-28] MEDS: CARVEDILOL 6.25 MG TABLET PO SCH ×2 (09:16→20:20)
[2021-02-28] MEDS ORDERED: EPOETIN ALFA-EPBX (NON-ESRD) 10,000 UNIT/ML VIAL SQ SCH (10:00)
[2021-02-28] MEDS ORDERED: COMPOUND IV MISC 1 EACH IVSOLN MISC PRN (10:15)
[2021-02-28 10:28] LABS: RETICULOCYTE % (AUTO) 3.97 % (0.42-2.23)
[2021-02-28] MEDS: LOSARTAN 25 MG TABLET PO SCH (10:44)
[2021-02-28] MEDS: IRON SUCROSE COMPLEX 300 MG in 0.9% NACL 50ML 50 ML IV SCH (10:44)
[2021-02-28] MEDS: INSULIN GLARGINE 100 UNITS/ML 10 ML VIAL SQ SCH ×2 (10:48→21:55)
[2021-02-28] MEDS: INSULIN LISPRO 100 UNIT/ML 3ML SQ SCH ×2 (10:48→16:45)
[2021-02-28 10:50] LABS: % IRON SATURATION 23.2 % (22-44)
[2021-02-28 11:58] VITALS: BP 151/76
[2021-02-28] MEDS: GABAPENTIN 300 MG CAPSULE PO SCH ×2 (14:14→20:19)
[2021-02-28 16:46] VITALS: BP 160/77
[2021-02-28 20:00] VITALS: BP 139/64
[2021-02-28] MEDS: ATORVASTATIN 40 MG TABLET PO SCH (20:19)
[2021-02-28] MEDS: TRAMADOL HCL 50 MG TABLET PO PRN (20:20)
[2021-02-28 23:56] VITALS: BP 117/57
[2021-03-01 04:00] VITALS: BP 127/61
[2021-03-01] MEDS: INSULIN HUMULIN R 100 UNIT/ML 3ML SQ SCH ×4 (06:33→20:09)
[2021-03-01 07:00] VITALS: BP 148/71
[2021-03-01] MEDS: INSULIN LISPRO 100 UNIT/ML 3ML SQ SCH ×3 (07:29→17:34)
[2021-03-01] MEDS: DOCUSATE SODIUM 100 MG CAP PO SCH ×2 (09:00→20:07)
[2021-03-01] MEDS: ASPIRIN 81 MG EC TAB PO SCH (09:00)
[2021-03-01] MEDS: CARVEDILOL 6.25 MG TABLET PO SCH ×2 (09:01→20:08)
[2021-03-01] MEDS: CLOPIDOGREL 75MG TAB PO SCH (09:01)
[2021-03-01] MEDS: GABAPENTIN 300 MG CAPSULE PO SCH ×3 (09:01→20:08)
[2021-03-01] MEDS: LOSARTAN 25 MG TABLET PO SCH (09:01)
[2021-03-01] MEDS: IRON SUCROSE COMPLEX 300 MG in 0.9% NACL 50ML 50 ML IV SCH (09:19)
[2021-03-01 11:00] VITALS: BP 105/66
[2021-03-01 15:00] VITALS: BP 125/86
[2021-03-01 19:49] VITALS: BP 158/69
[2021-03-01] MEDS: ATORVASTATIN 40 MG TABLET PO SCH (20:07)
[2021-03-01] MEDS: INSULIN GLARGINE 100 UNITS/ML 10 ML VIAL SQ SCH (20:10)
[2021-03-01 23:58] VITALS: BP 115/48
[2021-03-02] MEDS: TRAMADOL HCL 50 MG TABLET PO PRN (03:02)
[2021-03-02 03:56] VITALS: BP 114/47
[2021-03-02] MEDS: INSULIN HUMULIN R 100 UNIT/ML 3ML SQ SCH ×2 (06:17→11:19)
[2021-03-02] MEDS: INSULIN LISPRO 100 UNIT/ML 3ML SQ SCH ×2 (06:56→11:18)
[2021-03-02] MEDS: CLOPIDOGREL 75MG TAB PO SCH (07:35)
[2021-03-02] MEDS: GABAPENTIN 300 MG CAPSULE PO SCH (07:35)
[2021-03-02] MEDS: LOSARTAN 25 MG TABLET PO SCH (07:35)
[2021-03-02] MEDS: DOCUSATE SODIUM 100 MG CAP PO SCH (07:35)
[2021-03-02] MEDS: ASPIRIN 81 MG EC TAB PO SCH (07:35)
[2021-03-02] MEDS: CARVEDILOL 6.25 MG TABLET PO SCH (07:36)
[2021-03-02] MEDS: IRON SUCROSE COMPLEX 300 MG in 0.9% NACL 50ML 50 ML IV SCH (07:36)
[2021-03-02 08:09] VITALS: BP 125/66
[2021-03-02 11:25] VITALS: BP 106/54
[2021-03-02] MEDS ORDERED: CLOP75TA14 PO (12:14)
[2021-03-02] MEDS ORDERED: ASPI-1197 PO (12:14)
[2021-03-02] MEDS ORDERED: POLY17PO4 PO (12:15)
[2021-03-02] MEDS ORDERED: FERR-72 PO (12:15)
[2021-03-02 12:32] LABS: HEMATOCRIT 27.3 % (36-48); MEAN CORPUSCULAR HEMOGLOBIN 30.6 pg (27.0-33.0); MEAN CORPUSCULAR HGB CONC 31.9 g/dL (32.0-36.0); MEAN CORPUSCULAR VOLUME 96.1 fL (79-99); RED BLOOD CELL COUNT(AUTO) 2.84 MIL/uL (4.00-5.50); RED CELL DISTRIBUTION WIDTH 15.8 % (11.0-15.5)
[2021-03-02 12:39] LABS: CREATININE 0.5 mg/dL (0.5-1.5)
== END 2021-03-02 15:19 | disposition home or self-care (01) | DRG 253 ==
LOC: EDBD 15:02 → EDH 15:02 → EDHIP 21:05 → 2DH 22:00 → 2CH 02-25 19:38 → 2CV 02-25 23:45 → 2CH 02-25 23:46 → 4BH 02-26 18:03
PROVIDERS: ADMIT Internal Medicine; ATTEND Internal Medicine
PROC: B41G1ZZ Fluoroscopy of Left Lower Extremity Arteries using Low Osmolar Contrast (ICD-10-PCS; principal; 2021-02-24)
PROC: 04FN3Z0 Fragmentation of Left Popliteal Artery, Percutaneous Approach, Ultrasonic (ICD-10-PCS; 2021-02-24)
PROC: B41F1ZZ Fluoroscopy of Right Lower Extremity Arteries using Low Osmolar Contrast (ICD-10-PCS; 2021-02-24)
PROC: 3E04317 Introduction of Other Thrombolytic into Central Vein, Percutaneous Approach (ICD-10-PCS; 2021-02-24)
PROC: 0YHB33Z Insertion of Infusion Device into Left Lower Extremity, Percutaneous Approach (ICD-10-PCS; 2021-02-24)
PROC: 04CN0ZZ Extirpation of Matter from Left Popliteal Artery, Open Approach (ICD-10-PCS; 2021-02-25)
PROC: 3E03317 Introduction of Other Thrombolytic into Peripheral Vein, Percutaneous Approach (ICD-10-PCS; 2021-02-25)
DX: T82.898A Other specified complication of vascular prosthetic devices, implants and grafts, initial encounter (principal); I70.92 Chronic total occlusion of artery of the extremities; E11.51 Type 2 diabetes mellitus with diabetic peripheral angiopathy without gangrene; I10 Essential (primary) hypertension; E78.5 Hyperlipidemia, unspecified; E03.9 Hypothyroidism, unspecified; I25.10 Atherosclerotic heart disease of native coronary artery without angina pectoris; I70.202 Unspecified atherosclerosis of native arteries of extremities, left leg; E78.00 Pure hypercholesterolemia, unspecified; Z20.822 Contact with and (suspected) exposure to COVID-19; E66.9 Obesity, unspecified; K59.00 Constipation, unspecified; Y83.2 Surgical operation with anastomosis, bypass or graft as the cause of abnormal reaction of the patient, or of later complication, without mention of misadventure at the time of the procedure; Y92.89 Other specified places as the place of occurrence of the external cause; Z68.36 Body mass index [BMI] 36.0-36.9, adult; Z79.899 Other long term (current) drug therapy; Z95.5 Presence of coronary angioplasty implant and graft; Z82.3 Family history of stroke; Z83.3 Family history of diabetes mellitus; Z80.41 Family history of malignant neoplasm of ovary
CPT/HCPCS: 36247; 36415; 37211; 37214; 71045; 75716; 75774; 80048; 80053; 80076; 82550; 82607; 82728; 82746; 82948; 83036; 83540; 83550; 83735; 84100; 84484; 85025; 85027; 85045; 85347; 85610; 85730; 86140; 86850; 86900; 86901; 86923; 93005; 93926; 93970; 97039; 99156; 99157; A4344; C1757; C1769; C1893; C1894; G0378; J0330; J0690; J1100; J1170; J1644; J1756; J1815; J1885; J2001; J2250; J2270; J2370; J2405; J2704; J2710; J2720; J2997; J3010; J3490; J7030; J7197; P9045; Q9967